=== PATIENT | male | born 1985 | race African-American/Black ===

== ENCOUNTER 2019-04-05 23:11 | Day surgery (SDC) ==
[2019-04-05] MEDS ORDERED: TORADOL IM ONE (23:20)
[2019-04-05 23:56] LABS: BILIRUBIN URINE NEGATIVE (NEGATIVE); BLOOD URINE NEGATIVE (NEGATIVE); CLARITY CLEAR (CLEAR); COLOR YELLOW; GLUCOSE URINE NEGATIVE (NEGATIVE); KETONE URINE NEGATIVE (NEGATIVE); LEUKOCYTES URINE NEGATIVE (NEGATIVE); NITRITE URINE NEGATIVE (NEGATIVE); PH URINE 6.5; PROTEIN URINE NEGATIVE (NEGATIVE); UROBILINOGEN URINE 1 mg/dL
[2019-04-05 23:57] LABS: BASO# 0.07 X1000 (0.0-0.2); BASO% 0.4 % (0.0-0.8); EOS# 0.27 X1000 (0.0-0.7); EOS% 1.6 % (0.0-10.0); HEMOGLOBIN 14.6 g/dL (14.0-18.0); IMM GRAN# 0.05 X1000 (0.0-0.04); IMM GRAN% 0.3 % (0.0-0.5); LYMPH# 3.91 X1000 (1.2-3.4); LYMPH% 23.6 % (20.5-51.1); MCH 30.1 PG (27-31); MCHC 32.4 g/dL (33-37); MCV 92.8 FL (81-99); MONO# 1.22 X1000 (0.11-0.59); MONO% 7.4 % (1.7-9.3); MPV 10.1 FL (7.4-10.4); NEUT# 11.06 X1000 (1.4-6.5); NEUT% 66.7 % (42.2-75.2); PLT 277 X1000 (130-400); RBC 4.85 XMIL (4.7-6.1); RDW 11.9 % (11.5-14.5); WBC 16.58 X1000 (4.8-10.8)
[2019-04-06] LABS: URINE BACTERIA 3+ /HFP; URINE EPITHELIAL CELLS <10 /HPF (<10); URINE YEAST NONE SEEN /HPF
[2019-04-06 00:01] LABS: URINE CAST NONE SEEN /LPF; URINE CRYSTAL NONE SEEN /HPF; URINE SOURCE CLEAN CATCH; URINE WBC <10 /HPF (<10)
[2019-04-06 01:11] LABS: ALBUMIN 3.8 g/dL (3.5-5.0); ALKALINE PHOSPHATASE 81 U/L (32-122); BUN 17 mg/dL (8-22); CALCIUM 8.6 mg/dL (8.8-10.2); ESTIMATED GFR > 60; GLUCOSE 99 mg/dL (70-104); GOT 18 U/L (10-34); GPT 17 U/L (10-44); LIPASE 130 U/L (13-60); TCO2 24 mmol/L (25-35); TOTAL PROTEIN 7.2 g/dL (6.3-8.3)
--- NOTE | 2019-04-06 01:12 | PROVIDER DOCUMENTATION ---
This chart was entered by Rox Ellison Scribe, acting as scribe for Sukhdev Trujillo MD. HPI-Abdominal Pain/GI Problem - General Chief Complaint: Abdominal Pain Stated Complaint: FLANK PAIN Time Seen by Provider: 04/05/19 23:19 Source: patient Allergies/Adverse Reactions: Patient Allergies Allergy/AdvReac Type Severity Reaction Status Date / Time Corticosteroids Allergy SWELLING Verified 04/05/19 23:21 (Glucocorticoids) ketorolac [From Toradol] Allergy Unknown Verified 04/05/19 23:21 Home Medications: Home Medication List Medication Instructions Recorded Confirmed Last Taken Type NK [No Home Medications] 04/06/19 04/06/19 Unknown History - History of Present Illness-ABD Nature of Presenting Problems: 33 yobm c/o low abd pain starting monday am. pt having regular BMs, no constipation and good appetite. no penile discharge, no dysuria and no nvd. pt pain 7.5/10. no otc meds today. took tylenol earlier in week w/no relief. allergy to toradol. Abdominal Pain Onset Location: reports: RLQ, LLQ Pain Radiation: reports: no radiation Quality of Pain: reports: aching Severity in ED: reports: mild Onset/Duration: reports: 3 days ago Timing: reports: still present Activities at Onset: reports: none Review of Systems - Adult - REVIEW OF SYSTEMS - ADULT Constitutional: reports: no symptoms reported Eyes: reports: no symptoms reported Ears, Nose, Mouth & Throat: reports: no symptoms reported Cardiovascular: reports: no symptoms reported Respiratory: reports: no symptoms reported Gastrointestinal: reports: see HPI, abdominal pain (lower abd). denies: constipation, diarrhea, nausea, poor appetite, vomiting Genitourinary: reports: no symptoms reported. denies: dysuria, discharge, frequency Musculoskeletal: reports: no symptoms reported Integumentary: reports: no symptoms reported Neurological: reports: no symptoms reported Psychiatric: reports: no symptoms reported Endocrine: reports: no symptoms reported Hematologic/Lymphatic: reports: no symptoms reported Allergic/Immunologic: reports: no symptoms reported All Other Systems: Reviewed and Negative Past History - Adult - PAST MEDICAL HISTORY-ADULT Review of Records: reports: Old Records Reviewed, Nursing Assessment Review, Medications Reviewed, Social history reviewed & non-contributory. Major Childhood Illnesses: reports: denies history Cardiovascular: reports: denies history Respiratory: reports: denies history Gastrointestinal: reports: denies history Obstetrical/Gynecological: reports: denies history Genitourinary: reports: denies history Musculoskeletal: reports: denies history Neurological: reports: denies history Endocrine/Immune: reports: denies history Other Conditions: reports: denies history - PRIOR SURGERIES/PROCEDURES Surgical/Procedure History: reports: other (tailbone ) - IMMUNIZATION STATUS Childhood Immunizations: See Nurse Assessment Flu Vaccine: See Nurse Assessment - FAMILY HISTORY Family History: reviewed, not pertinent - SOCIAL HISTORY Smoking: cigarettes, greater than 1 pack/day Provider spent 3-5 mins advising pt. on dangers of tobacco.: Discussed manners to quit use, and f/u contacts for add'l counseling. Substance Use: alcohol Alcohol Use Frequency: occasionally Physical Exam-General - PHYSICAL EXAM-ADULT Initial Vital Signs Reviewed: Yes - CONSTITUTIONAL General Appearance: appears well, alert, no apparent distress - EYES Eyes: PERRL/EOMI, pink conjunctivae - HEAD, EARS, NOSE, MOUTH & THROAT HENMT: normocephalic/atraumatic, moist mucous membranes, normal ENT inspection - NECK Neck: non-tender, full range of motion, supple, normal inspection - RESPIRATORY Respiratory: chest non-tender, lungs clear, normal breath sounds - CARDIOVASCULAR Cardiovascular: normal peripheral pulses, regular rate, rhythm - GASTROINTESTINAL (ABDOMEN) Abdominal Exam: normal bowel sounds, soft, no organomegaly, no pulsatile mass, tenderness (to palp lower abd). negative: non tender, abnormal bowel sounds, distended, guarding - LYMPHATIC Lymphatic: no adenopathy - MUSCULOSKELETAL Back Exam: normal inspection, no CVA tenderness, no vertebral tenderness Extremity: normal range of motion, non-tender, normal gait, normal inspection Peripheral Pulses: radial (R): 2+, radial (L): 2+ - SKIN Integumentary: normal color, normal turgor, warm/dry - NEUROLOGIC Neurologic: grossly normal, no motor/sensory deficits - PSYCHIATRIC Psych/Mental Status: normal mood/affect, normal thought content, normal thought process, oriented x 3 Progress - PLAN OF CARE/RESULTS Progress/Plan/Lab Results: Vital Signs - 8 hr 04/05/19 23:15 Temperature 98.4 F Pulse Rate 62 Respiratory Rate 18 Blood Pressure 145/89 O2 Sat by Pulse Oximetry 98 Laboratory Results - last 24 hr 04/05/19 04/05/19 23:30 23:50 WBC 16.58 H RBC 4.85 Hgb 14.6 Hct 45.0 MCV 92.8 MCH 30.1 MCHC 32.4 L RDW Std Deviation 11.9 Plt Count 277 MPV 10.1 Immature Gran % (Auto) 0.3 Neut % (Auto) 66.7 Lymph % (Auto) 23.6 [place] % (Auto) 7.4 Eos % (Auto) 1.6 Baso % (Auto) 0.4 Immature Gran # (Auto) 0.05 H Neut # (Auto) 11.06 H Lymph # (Auto) 3.91 H [place] # (Auto) 1.22 H Eos # (Auto) 0.27 Baso # (Auto) 0.07 Urine Source CLEAN CATCH Urine Color YELLOW Urine Clarity CLEAR Urine pH 6.5 Ur Specific [place] 1.020 Urine Protein NEGATIVE Urine Ketones NEGATIVE Urine Blood NEGATIVE Urine Nitrite NEGATIVE Urine Bilirubin NEGATIVE Urine Urobilinogen 1 Urine Microscopic RBC Not Reportable Urine WBC NEGATIVE Urine Microscopic WBC <10 Ur Epithelial Cells <10 Urine Crystals NONE SEEN Urine Bacteria 3+ Urine Casts NONE SEEN Urine Yeast NONE SEEN Urine Glucose NEGATIVE Orders Category Date Time Status CT ABD/PELVIS W/IV CONT ONLY [CT] Stat Exams 04/06/19 00:03 Ordered CBC WITH ELECTRONIC DIFF [HEME] Stat Lab 04/05/19 23:50 Completed COMPREHENSIVE METABOLIC PANEL [CHEM] Stat Lab 04/06/19 00:10 Received LIPASE [CHEM] Stat Lab 04/06/19 00:[address] W/POSS RFLX CULT [URINALYSIS] Stat Lab 04/05/19 23:30 Completed URINE CULTURE [RM] Routine Lab 04/06/19 00:01 Ordered Ketorolac [Toradol] Med 04/05/19 23:20 Discontinued 60 mg IM NOW ONE Result Diagrams: 04/05/19 23:50 04/05/19 23:55 - CT/MRI 1 CT Study: Abdomen, Pelvis CT Results: acute appendicitis - CONSULTS/PCP/HOSPITALIST Notification #1 *Consult/PCP/Hospitalist*: Dr. Yip, surgeon sludge filtration attendant Time Discussed: 02:30 Reason/Comments: request admit to [facility], schedule surgery this am, start zosyn IV Departure - Departure Date of Disposition Decision: 04/06/19 Time of Disposition Decision: 02:32 DIAGNOSIS: Acute appendicitis Qualifiers: Acute appendicitis type: unspecified acute appendicitis type Qualified Code(s): K35.80 - Unspecified acute appendicitis Disposition: ADMITTED INPATIENT 09 Certified Medical Emergency: Emergent Condition: Stable Referrals and Follow-Ups: Geoff Carney MD [Primary Care Provider] - - Critical Care Note This patient required my direct & personal management of CC.: No Attestation - Physician/ BRENDEN Attestation Patient care was provided by Advanced Practice Provider:: No The physician spent face to face time with patient:: Yes Advanced Practice Provider documentation review:: Supervising physician onsite and consulted in the evaluation and care of this patient. The physician did have a face to face encounter with the patient. This chart was documented by the indicated scribe, (Rox Ellison Scribe) and accurately reflects the services I performed and decisions made by me, Sukhdev Trujillo MD, as attested by the provider's signature.
[2019-04-06 01:42] LABS: CHLORIDE 105 mmol/L (98-107); POTASSIUM 4.3 mmol/L (3.5-5.1); SODIUM 140 mmol/L (136-145)
[2019-04-06 01:47] LABS: AGAP 11; COSMO 281
[2019-04-06] MEDS ORDERED: NS 1,000 ML IV ONE (02:36)
[2019-04-06] MEDS ORDERED: MORPHINE IV PRN (02:36)
[2019-04-06] MEDS ORDERED: ZOSYN 3.375 GM in NS 50 ML IV ONE (02:38)
[2019-04-06] MEDS: ZOFRAN IV PRN ×2 (03:09→10:22)
--- NOTE | 2019-04-06 05:46 | Diag Imaging Result Doc PS360 ---
EXAM: CT ABD/PELVIS W/IV CONT ONLY HISTORY: lower abdomen pain TECHNIQUE: CT abdomen and pelvis with intravenous contrast COMPARISON: 10/06/2015 FINDINGS: The exam is suboptimal due to the lack of oral contrast. The gallbladder is contracted. No calcified stones. Normal liver, spleen, pancreas, adrenal glands, and kidneys. No hydronephrosis. Normal aorta. Mildly prominent mesenteric nodes in the mid and lower right abdomen. No bowel obstruction. There is a small amount of free fluid in the pelvis. The appendix is actually difficult to definitely identified. What appears to be the appendix is enlarged measuring 12 mm in diameter. The bowel loops in this area have a similar appearance. No abscess. No free air. IMPRESSION: Suboptimal exam without oral contrast. What appears to be the appendix is dilated to 12 mm. Suspect appendicitis although there is no abscess or free air. A preliminary report was given at 2:15 PM This exam was performed using automated exposure control, adjustment of mA or kV according to patient size, and/or use of iterative reconstruction technique. Electronically signed by Farooq Soto 04/06/2019 5:43 AM
[2019-04-06] MEDS ORDERED: XYLOCAINE-MPF 2% ONE (07:28)
[2019-04-06] MEDS ORDERED: FENTANYL ONE (07:28)
[2019-04-06] MEDS ORDERED: DECADRON ONE (07:28)
[2019-04-06] MEDS ORDERED: ZOFRAN ONE (07:28)
[2019-04-06] MEDS ORDERED: ROBINUL ONE ×2 (07:28→07:41)
[2019-04-06] MEDS ORDERED: DIPRIVAN 1% ONE ×2 (07:28→08:04)
[2019-04-06] MEDS ORDERED: QUELICIN (DOSE) ONE (07:34)
[2019-04-06] MEDS ORDERED: ZEMURON ONE (07:34)
[2019-04-06] MEDS ORDERED: SENSORCAINE-MPF 0.5%/EPI 1:200,000 ONE (07:54)
[2019-04-06] MEDS ORDERED: LR 1,000 ML ONE (07:54)
[2019-04-06] MEDS ORDERED: NEOSTIGMINE ONE (08:16)
[2019-04-06] MEDS: ZOSYN 3.375 GM in NS 50 ML IV SCH ×3 (08:40→21:28)
[2019-04-06] MEDS ORDERED: PHENERGAN IV PRN (09:46)
[2019-04-06] MEDS ORDERED: SODIUM CHLORIDE 0.9% INJ PRN (10:00)
[2019-04-06] MEDS: NORCO-10 PO PRN ×2 (10:22→21:28)
--- NOTE | 2019-04-06 12:21 | HISTORY AND PHYSICAL ---
Mr. Piyush Rosales is a 33-year-old, black male who presented to [facility] after a 3- day history of abdominal pain localizing to his lower abdominal midline and right lower quadrant. He has had regular bowel movements and a good appetite. He denies any nausea and vomiting. As part of his evaluation at [facility] Emergency Department, he underwent a CT scan of his abdomen and pelvis which suggested acute appendicitis and he was transferred from [facility] to [facility] for surgical evaluation and treatment. PAST MEDICAL HISTORY: Surgery on his tail bone. MEDICATIONS: No home medications. ALLERGIES: Corticosteroids and Toradol. SOCIAL HISTORY: Does smoke 1 pack of cigarettes a day. Drinks alcohol occasionally. REVIEW OF SYSTEMS: A 14-point review of systems was performed and was essentially negative except for the history of present illness. FAMILY HISTORY: Noncontributory. He does have a sister in [place] who works at their [employer]. PHYSICAL EXAMINATION: GENERAL: On exam, Mr. Josh Rosales is tall, strong, black male who appears to be healthy, no acute distress. Awake and cooperative. VITAL SIGNS: Temperature 98.4 degrees, heart rate 62, blood pressure 145/89, O2 saturation 98%. HEENT: He has no evidence of jaundice. No oral lesions. Satisfactory dentition. No cervical or supraclavicular lymphadenopathy. HEART: Has a regular rate. LUNGS: Were clear to auscultation and percussion bilaterally. ABDOMEN: Was soft. He has no previous scars. He has no evidence of hernia. There is no palpable mass. He was tender in the lower midline and right lower quadrant. RECTAL: Exam was not performed. EXTREMITIES: He does have palpable peripheral pulses. No peripheral edema. NEUROLOGIC: He is alert and oriented x3 and appropriate. His white blood cell count was 16.58, his hematocrit 45%. BUN and creatinine are [address] scan suggested a swollen appendix consistent with acute appendicitis. IMPRESSION: Acute appendicitis. PLAN: Laparoscopic, possible open appendectomy this morning. I have discussed it in detail with the patient and a friend of his at the bedside including its risks of bleeding, infection, injury to intra-abdominal contents with trocar placement, removal of a normal appendix, conversion of laparoscopic to open appendectomy, leakage from the appendiceal stump requiring reoperation for drainage, possible ruptured appendix requiring placement of a drain and prolonged hospitalization. He understands the need for surgery and its risks and he wants to proceed. cc: Aster Yip MD
[2019-04-06] MEDS: MORPHINE IV PRN ×2 (12:47→17:11)
--- NOTE | 2019-04-06 14:25 | OPERATIVE NOTE ---
PROCEDURE DATE: 04/06/2019 PREOPERATIVE DIAGNOSIS: Acute appendicitis. POSTOPERATIVE DIAGNOSIS: Acute appendicitis. PRINCIPAL PROCEDURE: Laparoscopic appendectomy. SURGEON: Aster Yip MD. ANESTHESIA: General in addition to local anesthetic. ESTIMATED BLOOD LOSS: 25 mL. DRAINS: None. INDICATIONS: Mr. Josh Rosales is a 33-year-old, black male who has a 3-day history of abdominal pain localizing to his right lower quadrant. He presented to [facility] Emergency Department. Part of his evaluation included a CT scan of his abdomen and pelvis which suggested acute appendicitis, as did his exam. He was transferred to [facility] for surgical treatment. FINDINGS: He had acute appendicitis without evidence of rupture. We felt we removed the appendix safely and no other intra-abdominal pathology was noted. PROCEDURE: The patient was brought to the operating room, placed supine, received IV sedation and was intubated. Robins catheter tube was placed. He already received IV Zosyn. His abdomen was prepped and draped within the sterile field. I used local anesthetic at my incision sites. I made a small incision at the umbilicus with a 15 blade scalpel. Veress needle was introduced through this incision into the abdomen. Pneumoperitoneum was established, and then the Veress needle was removed and I used step trocars. I placed an 11 mm step trocar through this incision at the umbilicus. A camera was placed through this port, and the abdomen was explored for injury, there was none. I placed 2 other trocars under direct vision of the camera. I placed a 12 mm trocar in the suprapubic area midline through a small transverse incision, and I placed a 5 mm trocar in the right lower quadrant of the abdomen. The camera was at the umbilicus and I used a grasper and a dissector in my lower trocar sites to mobilize the appendix, which was laying down in the pelvis. I came through the appendiceal mesentery and I controlled vessels with a gallbladder clip trail maintenance worker. Also used a spatula cautery to mobilize the appendix down to its base. I used a gold load 30 mm in length Endo EMIL to come across the base of the appendix and then used an endobag to remove the appendix through our 12 mm port site. I placed the trocar back through this 12 mm port site and the area of operation was thoroughly inspected, irrigated, and irrigation was removed with suction. There was no evidence of ongoing bleeding and we were happy with the appendiceal stump. We irrigated the area and the irrigation was removed with suction. We decided against leaving a drain. All trocars were removed under direct vision of the camera. The pneumoperitoneum was allowed to dissipate. I used a [id number]-[id number] 2-0 Vicryl stitches to reapproximate the fascia in midline trocar sites. All skin was closed with 4-0 Monocryl subcuticular stitches. Steri-Strips were applied. He tolerated the procedure well. We will discontinue his Robins catheter tube. He will go to the recovery room and then return to the floor. cc: Aster Yip MD
[2019-04-06] MEDS ORDERED: PERIDEX MT SCH (21:00)
[2019-04-07] MEDS: NORCO-10 PO PRN ×2 (02:57→09:25)
[2019-04-07] MEDS: ZOSYN 3.375 GM in NS 50 ML IV SCH (02:59)
[2019-04-07 07:24] VITALS: BP 142/90
--- NOTE | 2019-04-07 08:22 | DISCHARGE SUMMARY ---
ADMISSION DATE: 04/06/2019 DISCHARGE DATE: 04/07/2019 ADMITTING DIAGNOSIS: Acute appendicitis. DISCHARGE DIAGNOSIS: Acute appendicitis. PRINCIPAL PROCEDURE: Laparoscopic appendectomy on 04/06/2019. DISCHARGE DISABILITY: Full. DISCHARGE DISPOSITION: He will return to our outpatient offices in a week for followup. DISCHARGE DIET: Regular. DISCHARGE MEDICATIONS: He is to return to his home medications. HOSPITAL COURSE: Mr. Josh Rosales is a 33-year-old black male who presented to [facility] Emergency Department after a several-day history of abdominal pain localizing to his lower abdomen and right lower quadrant. As part of his evaluation, he underwent a CT scan of his abdomen and pelvis, which suggested acute appendicitis, as did his exam. He was transferred to [facility] for surgical evaluation and care. On 04/06/2019, he underwent a laparoscopic appendectomy for acute appendicitis without rupture. We felt the surgery went well. No drains were left, and after surgery he went to the recovery room and then was admitted to the [address] [place] [address] zepeda. On postop day 1, he was ambulating in the halls. His trocar sites were intact. He was tolerating liquids, and it was felt safe to discharge him home under the care of his family with followup in our outpatient offices in a week. At discharge, his heart rate was 62, blood pressure 142/90, O2 saturation 100%. He was afebrile, on no antibiotics. He knows to contact me with any problems, such as increasing abdominal distention, pain, nausea, or vomiting. cc: Aster Yip MD
== END 2019-04-07 10:20 | disposition home or self-care (01) ==
LOC: P.ED 23:11 → 4N 23:11 → OPS 04-06 02:59
PROVIDERS: ATTEND Surgery